=== PATIENT | female | born 1980 | race Caucasian/White ===

== ENCOUNTER 2017-07-30 19:08 | Outpatient (CLI) | payer MEDICAID ==
[~2017-07-30] VITALS: Ht 157.5 cm; Wt 98.2 kg
[~2017-07-30 19:08] MED LIST: IBUP-1542 PO; PRENAT PO
[2017-07-30 19:39] VITALS: Ht 157.5 cm; Wt 98.2 kg
[2017-07-30 19:40] VITALS: BP 144/70; PULSE 75; RESP 18
[2017-07-30 21:05] LABS: ADD UMIC NO; UR ASCORBIC ACID NEGATIVE (NEGATIVE); UR BILIRUBIN (Dip) NEGATIVE (NEGATIVE); UR BLOOD (Dip) NEGATIVE (NEGATIVE); UR CLARITY CLEAR (CLEAR); UR COLOR YELLOW (YELLOW); UR GLUCOSE (Dip) 1+ mg/dL (NEGATIVE); UR KETONES (Dip) NEGATIVE (NEGATIVE); UR LEUKOCYTE ESTERASE (Dip) NEGATIVE Leu/ul (NEGATIVE); UR NITRITE (Dip) NEGATIVE (NEGATIVE); UR SPECIFIC GRAVITY (Dip) 1.011 (1.003-1.030); UR TOTAL PROTEIN (Dip) NEGATIVE (NEGATIVE); UR UROBILINOGEN (Dip) NEGATIVE (NEGATIVE)
--- NOTE | 2017-07-30 21:29 | RADRPT ---
PROCEDURE: US OB. CLINICAL INDICATION: Size and dates TECHNIQUE: Multiple sonographic images of the pelvis and gravid uterus were obtained. The images were reviewed on a PACS workstation. COMPARISON: None FINDINGS: There is a single viable intrauterine gestation. Cardiac activity is present with 144 beats per min bryan. There is a vertex presentation. The placenta is fundal left. There is no evidence for an abruption or placenta previa. Measurements were made in order to determine age. The results are as follows: BPD =9.1 cm HC =32.2 cm AC =36.2 cm FL =7.8 cm Estimated gestational age of approximately 38 weeks and 2 days based on ultrasound measurements. Clinical age: 38 weeks and 4 days. The estimated date of delivery is 08/11/17, based on ultrasound measurements. The EFW = 3696 g, 79.1%, based on LMP age. RPTAT: AA IMPRESSION: Single viable intrauterine gestation of approximately 38 weeks and 2 days based on ultrasound measu rements. .Kai Hooker MD, Date Time Electronically viewed and signed by .Kai Hooker MD, on 07/30/2017 21:28 .S/
--- NOTE | 2017-07-30 21:30 | RADRPT ---
PROCEDURE: US OB biophysical profile. CLINICAL INDICATION: decreased movements TECHNIQUE: Multiple sonographic images of the pelvis were obtained. The images were reviewed on a PACS workstation. COMPARISON: Same day FINDINGS: There is a single viable intrauterine gestation. Cardiac activity is present with 129 beats per min bryan. There is a vertex presentation. The placenta is fundal left. There is no evidence of placental abruption. There is a normal amount of amniotic fluid with an LING = 18.2 cm. Biophysical profile: movement 2/2 tone 2/2. breathing 2/2 LING 2/2 Total 04/21 RPTAT: AA . IMPRESSION: Normal biophysical profile. . .Kai Hooker MD, MD Date Time Electronically viewed and signed by .Kai Hooker MD, MD on 07/30/2017 21:29 .S/
--- NOTE | 2017-07-30 22:05 | PN ---
Triage Information Date/Time Jul 30, 2017 Reason for visit: Abd/pelvic pain Weeks of Gestation 38w 4d /Para 5/4 Diabetes: none Hypertention: none Additional information Pt reports she had 5 bouts of diarrhea today but hasn't had one since 0.Feels much better. No nausea or vomiting or fever or chills. PMHx: none. PSHx: none. NKDA. Objective Vital Signs Date Time Temp Pulse Resp B/P Pulse Ox O2 Delivery O2 Flow Rate FiO2 07/30/17 21:40 98.4 75 18 127/61 Room Air Heart Rate: 120's Heart Rate Comments Accels to 160 bpm. No decels. Contractions: None Exam Deferred but pt stated she was checked in the clinic this week and she was 3 cm. Results/Medications Results 24 hrs Laboratory Tests Test 07/30/17 19:30 Urine Color YELLOW Urine Clarity CLEAR Urine pH 7.0 Urine Specific [place] 1.011 Urine Ketones NEGATIVE Urine Nitrite NEGATIVE Urine Bilirubin NEGATIVE Urine Urobilinogen NEGATIVE Urine Leukocyte Esterase NEGATIVE Urine Hemoglobin NEGATIVE Urine Glucose 1+ H Urine Total Protein NEGATIVE Imaging Results EFW 3696 grams. VTX. BPP 8/8. LING 18.2 cm. Disposition: Discharge Assessment/Plan A: IUP at 38w 4d. Abdominal pain/pelvic pain. Diarrhea. P: Pt is discharged home as the sx's appear to have resolved. Pt has a follow-up appt at the clinic on 08/03. ERMA BHANDARI MD Jul 30, 2017 22:05
--- NOTE | 2017-07-30 22:13 | TRIAGE ---
OB Triage Datetime Report Generated by CPN: 07/30/2017 22:13 Datetime: 07/30/2017 21:53 Labor Evaluation Frequency: 0 Monitor Mode: External Heart Rate FHR Baseline Rate: 120 Monitor Mode: External US FHR Baseline Changes: No Baseline Change Variability: Moderate 6-25 bpm Accelerations: 15X15 Decelerations: None Category: Category I Datetime: 07/30/2017 21:00 Labor Evaluation Frequency: 0 Monitor Mode: External Heart Rate FHR Baseline Rate: 135 Monitor Mode: External US FHR Baseline Changes: No Baseline Change Variability: Moderate 6-25 bpm Accelerations: 15X15 Decelerations: None Category: Category I Datetime: 07/30/2017 20:28 EGA: 38.4 Datetime: 07/30/2017 20:00 Labor Evaluation Frequency: 0 Monitor Mode: External Heart Rate FHR Baseline Rate: 125 Monitor Mode: External US FHR Baseline Changes: No Baseline Change Variability: Moderate 6-25 bpm Accelerations: 15X15 Decelerations: None Category: Category I Datetime: 07/30/2017 19:31 Vaginal Exam Membrane Status: Intact Datetime: 07/30/2017 19:24 Stage of : OB Triage Time of Arrival: 07/30/2017 19:04 Arrived By: Wheelchair Arrived From: Office Chief Complaint: C/O DIARRHEA SINCE THIS AM X 5 Movement: Present Rupture of Membranes: Denies Vaginal Bleeding: None Vaginal Discharge: Denies Recent Sexual Intercouse: Denies Abdominal Trauma: Not Applicable Patient Complaints: None Time Provider Notified: 07/30/2017 20:36 Provider Notified: DR MAK Initial Plan: CALL SAUNDRA BALGEY Maternal Assessment Level of Consciousness: Fully Conscious DTR's/Clonus: DTRs 2+; No Clonus Headache: Denies Blurred Vision: No Respiratory Effort: Unlabored; Regular Rhythm; Equal Expansion Breath Sounds, Left: Clear and Equal Breath Sounds, Right: Clear and Equal Nausea/Vomiting: Denies RUQ Epigastric Pain: Denies Lower Extremities Edema: Bilateral Lower Extremities Degree: 1+ Upper Extremities Edema: None Degree: None Facial Edema: None Temperature Route: Oral Fall Risk Assessment History of Falling: (0) No Secondary Diagnosis: (0) No Ambulatory Aid: (0) Bedrest/Nurse Assist IV Therapy: (0) No Gait: (0) Normal/Bedrest/Immobile Mental Status: (0) Oriented to Own Ability Fall Score: 0 Fall Risk Score Definition: No Risk: No action required Monitor Mode: External Monitor Mode: External US Pain Assessment Pain Presence: None/Denies
== END 2017-07-30 22:00 | disposition home or self-care (01) ==
LOC: OBT 19:08 → L-D 19:10 → OBT 22:00
PROVIDERS: ATTEND Obstetrics & Gynecology
DX: O26.893 Other specified pregnancy related conditions, third trimester (principal); Z3A.38 38 weeks gestation of pregnancy; R10.2 Pelvic and perineal pain; R19.7 Diarrhea, unspecified
CPT/HCPCS: 76815; 76818; 81003; 87086; Z7500; G0463

== ENCOUNTER 2017-08-09 10:59 | Inpatient (IN) | payer MEDICAID ==
[~2017-08-09] VITALS: Ht 160 cm; Wt 94.0 kg
[~2017-08-09 10:59] MED LIST changes: -IBUP-1542 PO
[2017-08-09 11:35] VITALS: Ht 160 cm; Wt 94.0 kg
[2017-08-09 11:36] VITALS: BP 130/81; PULSE 91; RESP 20
[2017-08-09] MEDS ORDERED: LACTATED RINGER'S 1,000 ML IV SCH (11:52)
[2017-08-09] MEDS ORDERED: BUTORPHANOL 2 MG INJ IV PRN (12:00)
[2017-08-09] MEDS ORDERED: MISOPROSTOL 200 MCG TAB PR PRN ×2 (12:00→19:30)
[2017-08-09] MEDS ORDERED: LIDOCAINE 1% (MPF) 30 ML INJ INJ PRN (12:00)
[2017-08-09] MEDS ORDERED: OXYTOCIN 30 UNITS/LR 500 ML IV PRN ×2 (12:00→19:30)
[2017-08-09] MEDS ORDERED: CARBOPROST 250 MCG INJ IM PRN ×2 (12:00→19:30)
[2017-08-09] MEDS ORDERED: OXYTOCIN 30 UNITS/LR 500 ML IV SCH ×3 (12:00)
[2017-08-09] MEDS ORDERED: METHYLERGONOVINE 0.2 MG INJ IM PRN ×2 (12:00→19:30)
[2017-08-09] MEDS ORDERED: IBUPROFEN 600 MG TAB PO PRN (12:00)
[2017-08-09 12:15] LABS: BASOPHILS % 0.2 % (0.0-2.0); EOSINOPHILS # 0.1 10^3/ul (0.0-0.5); EOSINOPHILS % 0.6 % (0.0-7.0); HEMATOCRIT 36.8 % (37.0-47.0); HEMOGLOBIN 11.9 g/dl (12.0-16.0); LYMPHOCYTES # 1.9 10^3/ul (0.8-2.9); LYMPHOCYTES % 19.5 % (15.0-51.0); MEAN CORPUSCULAR HEMOGLOBIN 26.9 pg (29.0-33.0); MEAN CORPUSCULAR HGB CONC 32.3 g/dl (32.0-37.0); MEAN CORPUSCULAR VOLUME 83.1 fl (82.0-101.0); MEAN PLATELET VOLUME 11.5 fl (7.4-10.4); MONOCYTE # 0.7 10^3/ul (0.3-0.9); MONOCYTES % 6.8 % (0.0-11.0); NUCLEATED RED BLOOD CELLS% 0.2 /100WBC (0.0-0.0); PLATELET COUNT 212 10^3/UL (140-415); RED BLOOD COUNT 4.43 10^6/ul (4.20-5.40); RED CELL DISTRIBUTION WIDTH 15.1 % (11.5-14.5); WHITE BLOOD COUNT 9.8 10^3/ul (4.8-10.8)
[2017-08-09] MEDS ORDERED: LACTATED RINGER'S 1,000 ML IV PRN (12:30)
--- NOTE | 2017-08-09 12:37 | TRIAGE ---
OB Triage Datetime Report Generated by CPN: 08/09/2017 12:37 Datetime: 08/09/2017 12:28 Assessment Type: Admission Assessment Vaginal Bleeding: None Maternal Assessment Level of Consciousness: Fully Conscious DTR's/Clonus: DTRs 2+; No Clonus Headache: Denies Blurred Vision: No Respiratory Effort: Unlabored; Regular Rhythm; Equal Expansion Breath Sounds, Left: Clear and Equal Breath Sounds, Right: Clear and Equal Nausea/Vomiting: Denies RUQ Epigastric Pain: Denies Lower Extremities Edema: None Degree: None Upper Extremities Edema: None Degree: None Facial Edema: None Fall Risk Assessment History of Falling: (0) No Secondary Diagnosis: (0) No Ambulatory Aid: (0) Bedrest/Nurse Assist IV Therapy: (0) No Gait: (0) Normal/Bedrest/Immobile Mental Status: (0) Oriented to Own Ability Fall Score: 0 Fall Risk Score Definition: No Risk: No action required Labor Evaluation Frequency: IRREG Duration (sec)2399: 60 Quality: Moderate Pattern: Normal: <= 5 Contractions in 10 Minutes Resting Tone [place]: Relaxed Heart Rate FHR Baseline Rate: 145 Variability: Moderate 6-25 bpm Accelerations: 15X15 Decelerations: None Category: Category I Pain Assessment Pain Scale: 3 Pain Presence: Intermittent Pain Type: Contraction Pain Location: Abdomen Pain Goal: 6 Vaginal Exam Dilatation (cms): 5.0 Effacement (%): 80 Station: -3 Membrane Status: Intact Datetime: 08/09/2017 12:03 Maternal Assessment Level of Consciousness: Fully Conscious DTR's/Clonus: DTRs 2+ Headache: Denies Blurred Vision: No Nausea/Vomiting: Denies RUQ Epigastric Pain: Denies Facial Edema: None Labor Evaluation Frequency: IRREG Monitor Mode: External Duration (sec)2399: 60 Quality: Moderate Pattern: Normal: <= 5 Contractions in 10 Minutes Resting Tone [place]: Relaxed Heart Rate FHR Baseline Rate: 160 Monitor Mode: External US FHR Baseline Changes: No Baseline Change Variability: Moderate 6-25 bpm Accelerations: 15X15 Decelerations: None Category: Category I Pain Assessment Pain Scale: 3 Pain Presence: Intermittent Pain Type: Contraction Pain Location: Abdomen Pain Goal: 6 Membrane Status: Intact Datetime: 08/09/2017 11:30 Time of Arrival: 08/09/2017 10:50 EGA: 39.6 Arrived By: Ambulatory Arrived From: Home Chief Complaint: IRREG UCS SINCE 0900 Movement: Present Contractions: Irregular Time Contractions Began: 08/09/2017 09:00 Contractions: Q 15 PER PT Rupture of Membranes: Unsure Vaginal Bleeding: None Vaginal Discharge: Denies Recent Sexual Intercouse: Denies Abdominal Trauma: Not Applicable Patient Complaints: Contractions Time Provider Notified: 08/09/2017 11:31 Provider Notified: DR MAK Initial Plan: EFM,CALL DR MAK Maternal Assessment Level of Consciousness: Fully Conscious DTR's/Clonus: DTRs 2+ Headache: Denies Blurred Vision: No Nausea/Vomiting: Denies RUQ Epigastric Pain: Denies Facial Edema: None Labor Evaluation Frequency: IRREG Monitor Mode: External Quality: Moderate Pattern: Normal: <= 5 Contractions in 10 Minutes Resting Tone [place]: Relaxed Heart Rate FHR Baseline Rate: 135 Monitor Mode: External US FHR Baseline Changes: No Baseline Change Variability: Moderate 6-25 bpm Accelerations: 15X15 Decelerations: None Category: Category I Pain Assessment Pain Scale: 3 Pain Presence: Intermittent Pain Type: Contraction Pain Location: Abdomen Pain Goal: 5 Vaginal Exam Dilatation (cms): 5.0 Effacement (%): 80 Station: -3 Exam By: SCOTT SALAZAR Membrane Status: Intact Vaginal Bleeding: None Cervix, Consistency: Soft Cervix, Position: Midposition Presentation 'A': Cephalic Datetime: 08/09/2017 11:29 Maternal Assessment Level of Consciousness: Fully Conscious DTR's/Clonus: DTRs 2+; No Clonus Headache: Denies Blurred Vision: No Respiratory Effort: Unlabored; Regular Rhythm; Equal Expansion Breath Sounds, Left: Clear and Equal Breath Sounds, Right: Clear and Equal Nausea/Vomiting: Denies RUQ Epigastric Pain: Denies Facial Edema: None Temperature Route: Axillary Fall Risk Assessment History of Falling: (0) No Secondary Diagnosis: (0) No Ambulatory Aid: (0) Bedrest/Nurse Assist IV Therapy: (0) No Gait: (0) Normal/Bedrest/Immobile Mental Status: (0) Oriented to Own Ability Fall Score: 0 Fall Risk Score Definition: No Risk: No action required Datetime: 07/30/2017 20:28 EGA: 38.3 Datetime: 07/30/2017 19:24 Fall Score: 0 Fall Risk Score Definition: No Risk: No action required
[2017-08-09 13:02] LABS: INR 0.91; PROTIME 12.3 Sec (12.2-14.2)
[2017-08-09 13:03] LABS: PARTIAL THROMBOPLASTIN TIME 24.4 Sec (25.0-35.0)
[2017-08-09 14:32] LABS: ALBUMIN 3.3 g/dl (3.3-4.9); ALBUMIN/GLOBULIN RATIO 0.89; BILIRUBIN,INDIRECT 0.4 mg/dl (0-1.1); BILIRUBIN,TOTAL 0.4 mg/dl (0.2-1.3); CALCIUM 9.7 mg/dl (8.4-10.2); CREATININE 0.57 mg/dl (0.44-1.00); POTASSIUM 3.8 mmol/L (3.5-5.1); URIC ACID 4.7 mg/dl (3.1-7.9)
--- NOTE | 2017-08-09 16:59 | LDN ---
Date/Time of Note Date/Time of Note DATE: 08/09/17 TIME: 16:58 Delivery Summary ob stat called. pt ant lip and doctor not available. walked into room when call and pt delivered percipitously. nurse assistted Placenta Delivered: Spontaneously Meconium: none Anesthesia type: None Estimated blood loss: 200 Sponge & Needle done & correct: Yes All needle counts correct: Yes Any foreign bodies felt in the: No Problems: Infant Delivery Information Suctioning Nose & mouth suctioned at chris: Yes Umbilical Cord Umbilical cord with: 3 Vessels Cord presentations: no nuchal cord Cord Blood was obtained: Yes MYA HILLMAN MD Aug 09, 2017 16:59
[2017-08-09] MEDS: LACTATED RINGER'S 1,000 ML IV* SCH (19:22)
[2017-08-09] MEDS ORDERED: WITCH HAZEL/GLYCERIN PAD PR PRN (19:30)
[2017-08-09] MEDS ORDERED: BENZOCAINE 20% 56 ML SPRAY TOP PRN (19:30)
[2017-08-09] MEDS ORDERED: HYDROCODONE/APAP (5/325) TAB PO PRN (19:30)
[2017-08-09] MEDS: OXYTOCIN 30 UNITS/LR 500 ML IV SCH (20:08)
[2017-08-09 20:09] VITALS: BP 134/65; PULSE 75; RESP 19
[2017-08-09 20:59] LABS: ADD UMIC YES; UR ASCORBIC ACID NEGATIVE (NEGATIVE); UR BILIRUBIN (Dip) NEGATIVE (NEGATIVE); UR BLOOD (Dip) 3+ mg/dL (NEGATIVE); UR CLARITY CLEAR (CLEAR); UR COLOR STRAW (YELLOW); UR GLUCOSE (Dip) NEGATIVE (NEGATIVE); UR KETONES (Dip) TRACE mg/dL (NEGATIVE); UR LEUKOCYTE ESTERASE (Dip) NEGATIVE Leu/ul (NEGATIVE); UR NITRITE (Dip) NEGATIVE (NEGATIVE); UR RBC 2 /HPF (0-5); UR TOTAL PROTEIN (Dip) NEGATIVE (NEGATIVE); UR UROBILINOGEN (Dip) NEGATIVE (NEGATIVE)
[2017-08-09] MEDS: SENNA/DOCUSATE NA (8.6MG/50MG) TAB PO SCH (21:51)
[2017-08-10] MEDS: IBUPROFEN 600 MG TAB PO SCH ×5 (00:07→23:56)
[2017-08-10] MEDS: OXYTOCIN 30 UNITS/LR 500 ML IV SCH (00:46)
[2017-08-10] MEDS: LACTATED RINGER'S 1,000 ML IV* SCH (03:22)
[2017-08-10 04:00] VITALS: BP 101/56; PULSE 70; RESP 19
[2017-08-10 08:00] VITALS: BP 117/68; PULSE 74; RESP 18
[2017-08-10] MEDS: SENNA/DOCUSATE NA (8.6MG/50MG) TAB PO SCH ×2 (09:59→20:20)
[2017-08-10] MEDS: PRENATAL VITAMIN PO SCH (09:59)
--- NOTE | 2017-08-10 10:08 | QN ---
Documentation Comment day 1 Patient is afebrile and stable Patient is ambulating and voiding urine Vital signs stable Abdomen soft nontender/nondistended Fundus firm Extremities nontender Assessment and plan CBC today Encourage ambulation Continue with present management KIMMY BENNETT MD Aug 10, 2017 10:08
[2017-08-10 11:17] LABS: BASOPHILS % 0.2 % (0.0-2.0); EOSINOPHILS # 0.1 10^3/ul (0.0-0.5); EOSINOPHILS % 0.6 % (0.0-7.0); HEMATOCRIT 36.2 % (37.0-47.0); HEMOGLOBIN 11.6 g/dl (12.0-16.0); LYMPHOCYTES # 1.9 10^3/ul (0.8-2.9); LYMPHOCYTES % 19.9 % (15.0-51.0); MEAN CORPUSCULAR HEMOGLOBIN 26.8 pg (29.0-33.0); MEAN CORPUSCULAR VOLUME 83.6 fl (82.0-101.0); MEAN PLATELET VOLUME 11.6 fl (7.4-10.4); MONOCYTE # 0.5 10^3/ul (0.3-0.9); MONOCYTES % 5.1 % (0.0-11.0); NEUTROPHIL # 6.8 10^3/ul (1.6-7.5); NEUTROPHILS % 73.3 % (39.0-77.0); PLATELET COUNT 216 10^3/UL (140-415); RED BLOOD COUNT 4.33 10^6/ul (4.20-5.40); RED CELL DISTRIBUTION WIDTH 15.2 % (11.5-14.5); WHITE BLOOD COUNT 9.3 10^3/ul (4.8-10.8)
[2017-08-10 16:10] VITALS: BP 111/71; PULSE 76; RESP 18
--- NOTE | 2017-08-10 17:11 | HP ---
Date/Time of Note Date/Time of Note DATE: 08/10/17 TIME: 17:07 OB - History Hx of Present Free Text/Dictation admited C/O labor contractions started AM of the admission Chief Complaint: labor pains Last Menstrual Period: Nov 03, 2016 Estimated Due Date: Aug 10, 2017 : 6 Para: 4 Spontaneous : 1 Care: Limited Care Ultrasounds: Normal mid trimester US Obstetrical Complications: None Medical Complications: None Past Family/Social History * Past Medical, Surgical, Family and Obstetric Histories reviewed from chart. Blood Type: O+ Rubella: immune RPR/VDRL: Negative GBS Status: Negative HBsAG: Negative OB Admission Exam Vital Signs Vital Signs Vital Signs Date Time Temp Pulse Resp B/P Pulse Ox O2 Delivery O2 Flow Rate FiO2 08/10/17 16:10 98.9 76 18 111/71 Room Air Physical Exam HEENT: WNL Heart: Rhythm Normal Lungs: Clear, Equal Abdomen: WNL Extremities: Normal Reflexes: Normal Cervical Dilatation: 5cm Effacement: 75% Station: -3 Membranes: Intact Heart Rate: 130's Accelerations: Accelerations Present Decelerations: No Decelerations Varibility: Moderate Contractions on Admission: 6-10 Minutes Apart Date/Time Contractions Began: 08/09/2017 0900 Frequency of Contractions: Q 7-9 min. Duration: >45 seconds Intensity: Mild Last 72 hours Lab Results CBC & BMP 08/09/17 11:45 08/10/17 10:30 Liver Function Test 08/09/17 11:45 Alanine Aminotransferase (ALT/SGPT) 26 Albumin 3.3 Alkaline Phosphatase 129 H Aspartate Amino Transf (AST/SGOT) 26 Direct Bilirubin 0.00 Total Protein 7.0 OB Assessment/Plan Reason for admission: active labor Other Assessment: rwem gestation Other plan: proceed with labor KENISHA LOUIS MD Aug 10, 2017 17:11
--- NOTE | 2017-08-10 17:12 | DS ---
Date/Time of Note Date/Time of Note home today or next day DATE: 08/10/17 TIME: 17:11 Obstetrical Discharge Record Final Diagnosis Final Diagnosis: Term delivered Other Final Diagnosis S/P vaginal delivery Vaginal Delivery Obstetrical Delivery: Spontaneous Condition on Discharge Physical Assessment Last Vitals: see nurses notes Voiding: Yes Bowel Movement: Yes Breast: Soft, non-tender, Filling Fundus: Firm Abdomen and Incision: soft bs + Episiotomy: NA Calf Tenderness: No Patient Condition: Good KENISHA LOUIS MD Aug 10, 2017 17:12
--- NOTE | 2017-08-10 17:14 | PD.PPDC ---
[facility] Discharge Instruction Provider Information Physician Information 27/o female had vaginal delivery Diagnosis Final Diagnosis: S/P vaginal delivery Condition Patient Condition: Good Diet Diet: Resume Regular Diet Activity/Restrictions Activity: Normal Activity May Shower Restrictions: Nothing in the Vagina Return to Work or School: Sep 28, 2017 Follow-up Follow-up with Physician: 4, Week/Weeks (in clinic ) Return to clinic for OB Instructions: Breast Tenderness Depression Comment: pelvic rest X 6 weeks KENISHA LOUIS MD Aug 10, 2017 17:14
[2017-08-10] MEDS ORDERED: IBUP-1542 PO (17:15)
[2017-08-10 19:50] VITALS: BP 142/64; PULSE 119; RESP 19
[2017-08-11 03:32] VITALS: BP 106/58; PULSE 69; RESP 17
[2017-08-11] MEDS: IBUPROFEN 600 MG TAB PO SCH ×2 (05:40→12:27)
[2017-08-11 08:15] VITALS: BP 114/69; PULSE 73; RESP 18
[2017-08-11] MEDS: PRENATAL VITAMIN PO SCH (10:00)
[2017-08-11] MEDS: SENNA/DOCUSATE NA (8.6MG/50MG) TAB PO SCH (10:00)
[2017-08-11 16:00] VITALS: BP 96/56; PULSE 70; RESP 18
== END 2017-08-11 16:58 | disposition home or self-care (01) | DRG 775 ==
LOC: OBT 10:59 → L-D 11:00 → OBT 11:45 → L-D 11:45 → PP1 20:05
PROVIDERS: ADMIT Obstetrics & Gynecology; ATTEND Obstetrics & Gynecology
PROC: 10E0XZZ Delivery of Products of Conception, External Approach (ICD-10-PCS; principal; 2017-08-09)
DX: O80 Encounter for full-term uncomplicated delivery (principal); Z37.0 Single live birth; Z3A.39 39 weeks gestation of pregnancy
CPT/HCPCS: 80053; 81001; 84112; 84560; 85025; 85384; 85610; 85730; 86592; 86900; 86901; 87340; G0463; J2590; J7120